=== PATIENT | female | born 1990 | race American Indian/Alaskan Native ===

== ENCOUNTER 2019-05-03 04:25 | Emergency (ER) | payer SELFPAY ==
[2019-05-03 04:54] LABS: Bilirubin,Urine NEG (Negative); Blood,Urine NEG (Negative); Color,Urine Yellow (Yellow); Protein,Urine <15 mg/dL mg/dL (Negative); Urobilinogen,Urine < 2.0 mg/dL (<2.0)
[2019-05-03] MEDS ORDERED: LIDOCAINE VISCOUS 2% 15 ML ORAL LIQD PO ONE (05:14)
[2019-05-03] MEDS ORDERED: FAMOTIDINE 20 MG/2 ML INJ IV ONE (05:14)
[2019-05-03] MEDS ORDERED: ALUM-MAG HYDROXIDE-SIMETHICONE 200-200-20MG/5ML ORAL LIQD 30 ML PO ONE (05:14)
[2019-05-03] MEDS ORDERED: ONDANSETRON 4 MG/2 ML INJ IV ONE (05:14)
[2019-05-03] MEDS ORDERED: DICYCLOMINE 20 MG TAB PO ONE (05:14)
[2019-05-03 05:24] LABS: Basophils % (Auto) 0.5 % (0.0-1.8); Eosinophils % (Auto) 0.6 % (0.0-4.3); Hematocrit 39.4 % (30.3-42.9); Hemoglobin 13.3 gm/dl (10.1-14.3); Lymphocytes # (Auto) 2.1 K/mm3 (1.2-5.4); Lymphocytes % (Auto) 32.5 % (13.4-35.0); Mean Corpuscular HGB Conc 34 % (30-34); Mean Corpuscular Volume 93 fl (79-97); Monocytes # (Auto) 0.6 K/mm3 (0.0-0.8); Monocytes % (Auto) 9.9 % (0.0-7.3); Platelet Count 313 K/mm3 (140-440); Red Blood Count 4.26 M/mm3 (3.65-5.03); Red Cell Distribution Width 13.5 % (13.2-15.2)
[2019-05-03 05:39] LABS: Alanine Aminotransferase 11 units/L (7-56); Albumin 3.9 g/dL (3.9-5); BUN/Creatinine Ratio 21; Blood Urea Nitrogen 15 mg/dL (7-17); Calcium 9.2 mg/dL (8.4-10.2); Hemolysis Index 8
--- NOTE | 2019-05-03 06:40 | Ultrasound Report ---
ULTRASOUND ABDOMEN, LIMITED (RIGHT UPPER QUADRANT) INDICATION: Epigastric / RUQ pain. COMPARISON: None available. FINDINGS: Pancreas: Visualized portion shows no significant abnormality. Liver: Normal. Gallbladder: 1 or 2 gallstones are present. No wall thickening or pericholecystic fluid. Bile ducts: Normal. Common Bile Duct measures 2 mm. Free fluid: None. Additional Findings: None. IMPRESSION: 1. Cholelithiasis without evidence of acute cholecystitis. Signer Name: Sharath Mallory MD Signed: 05/03/2019 6:36 AM Workstation Name: [id number]
--- NOTE | 2019-05-03 07:54 | Emergency Department Report ---
ED Abdominal Pain HPI - General Chief Complaint: Abdominal Pain Stated Complaint: UPPER ABD PAIN/NAUSEA/TIERNEY Time Seen by Provider: 05/03/19 07:17 Source: patient Mode of arrival: Ambulatory Limitations: No Limitations - History of Present Illness Initial Comments: This is a 29-year-old female nontoxic, well nourished in appearance, no acute signs of distress presents to the ED with c/o of nausea and abdominal pain 4 days. Patient denies any vomiting. Patient describes abdominal pain as cramping and aching with level of 3/10 in the epigastric area with radiation to right flank area. Patient denies chest pain, short of breath, fever, chills, headache, stiff neck, numbness or tingling. Patient denies any diarrhea or constipation. Patient denies any recent travels. Patient denies any allergies or significant past medical history area MD Complaint: abdominal pain -: days(s) (4) Location: RUQ, epigastric Radiation: R flank Migration to: no migration Severity: mild Severity scale (0 -10): 3 Quality: cramping Consistency: constant Improves With: nothing Worsens With: nothing Associated Symptoms: nausea. denies: vomiting, diarrhea, fever, chills, constipation, dysuria, hematemesis, hematochezia, melena, hematuria, anorexia, syncope - Related Data Previous Rx's Medication Instructions Recorded Last Taken Type Acetaminophen/Codeine [Tylenol 1 tab PO Q6H PRN #12 tab 05/03/19 Unknown Rx /Codeine # 3 tab] Ondansetron [Zofran Odt] 4 mg PO Q8HR PRN #20 tab.rapdis 05/03/19 Unknown Rx Allergies Allergy/AdvReac Type Severity Reaction Status Date / Time No Known Allergies Allergy Unverified 05/03/19 04:33 ED Review of Systems ROS: Stated complaint: UPPER ABD PAIN/NAUSEA/TIERNEY Other details as noted in HPI Constitutional: denies: chills, fever Eyes: denies: eye pain, eye discharge, vision change ENT: denies: ear pain, throat pain Respiratory: denies: cough, shortness of breath, wheezing Cardiovascular: denies: chest pain, palpitations Endocrine: no symptoms reported Gastrointestinal: abdominal pain, nausea. denies: vomiting, diarrhea, constipation Genitourinary: denies: urgency, dysuria, discharge Musculoskeletal: denies: back pain, joint swelling, arthralgia Skin: denies: rash, lesions Neurological: denies: headache, weakness, paresthesias Psychiatric: denies: anxiety, depression Hematological/Lymphatic: denies: easy bleeding, easy bruising ED Past Medical Hx - Past Medical History Previous Medical History?: Yes Hx Asthma: Yes (allergies induced) - Surgical History Past Surgical History?: No - Social History Smoking Status: Never Smoker Substance Use Type: None - Medications Home Medications: Home Medications Medication Instructions Recorded Confirmed Last Taken Type Acetaminophen/Codeine [Tylenol 1 tab PO Q6H PRN #12 tab 05/03/19 Unknown Rx /Codeine # 3 tab] Ondansetron [Zofran Odt] 4 mg PO Q8HR PRN #20 tab.rapdis 05/03/19 Unknown Rx ED Physical Exam - General Limitations: No Limitations General appearance: alert, in no apparent distress - Head Head exam: Present: atraumatic, normocephalic - Neck Neck exam: Present: normal inspection, full ROM. Absent: tenderness, meningismus, lymphadenopathy - Respiratory Respiratory exam: Present: normal lung sounds bilaterally. Absent: respiratory distress, wheezes, rales, rhonchi, stridor, chest wall tenderness, accessory muscle use, decreased breath sounds, prolonged expiratory - Cardiovascular Cardiovascular Exam: Present: regular rate, normal rhythm, normal heart sounds. Absent: bradycardia, tachycardia, irregular rhythm, systolic murmur, diastolic murmur, rubs, gallop - GI/Abdominal GI/Abdominal exam: Present: soft, tenderness (RUQ with epigastric), normal bowel sounds. Absent: distended, guarding, rebound, rigid, diminished bowel sounds - Extremities Exam Extremities exam: Present: full ROM - Back Exam Back exam: Present: normal inspection, full ROM. Absent: tenderness, CVA tenderness (R), CVA tenderness (L), muscle spasm, paraspinal tenderness, vertebral tenderness, rash noted - Neurological Exam Neurological exam: Present: alert, oriented X3, normal gait - Psychiatric Psychiatric exam: Present: normal affect, normal mood - Skin Skin exam: Present: warm, dry, intact, normal color. Absent: rash ED Course Vital Signs 05/03/19 04:30 Temperature 98.7 F Pulse Rate 86 Respiratory 18 Rate Blood Pressure 113/79 O2 Sat by Pulse 99 Oximetry - Reevaluation(s) Reevaluation #1: 05/03/19 08:02 Patient is speaking in full sentences with no signs of distress noted. ED Medical Decision Making - Lab Data Result diagrams: 05/03/19 04:51 05/03/19 04:51 - Medical Decision Making This is a 29-year-old female that presents with cholelithiasis without cholecystitis. Patient is stable and was examined by me. Negative signs of symptoms of appendicitis. Labs obtained. UA obtained. US of abdomen obtained and dictated by the radiologist. Patient is notified of the report with no questions noted by the patient. Vital signs are stable prior to discharge. Patient received medical treatment in the ED which patient stated symptoms has resovled and subsided. Was instructed note to operate any machinery due to possible drowsiness and stated someone will drive the patient home. A by mouth challenge has been obtained and patient tolerated well with no nausea vomiting. Patient was also instructed to Follow-up with a primary care doctor in 3-5 days or if symptoms worsen and continue return to emergency room as soon as possible. At time of discharge, the patient does not seem toxic or ill in appearance. No acute signs of distress noted. Patient agrees to discharge treatment plan of care. No further questions noted by the patient. Critical care attestation.: If time is entered above; I have spent that time in minutes in the direct care of this critically ill patient, excluding procedure time. ED Disposition Clinical Impression: Cholelithiasis Qualifiers: Cholelithiasis location: gallbladder Cholecystitis presence: without cholecystitis Biliary obstruction: without biliary obstruction Qualified Code(s): K80.20 - Calculus of gallbladder without cholecystitis without obstruction Disposition: DC-01 TO HOME OR SELFCARE Is pt being admited?: No Does the pt Need Aspirin: No Condition: Stable Instructions: Cholelithiasis (ED), Acetaminophen/Codeine (By mouth) Additional Instructions: Follow-up with a primary care and eligibility specialist doctor in 3-5 days or if symptoms worsen and continue return to emergency room as soon as possible. Prescriptions: Acetaminophen/Codeine [Tylenol /Codeine # 3 tab] 1 tab PO Q6H PRN #12 tab PRN Reason: Pain , Severe (7-10) Ondansetron [Zofran Odt] 4 mg PO Q8HR PRN #20 tab.rapdis PRN Reason: Nausea Referrals: PRIMARY CARE, [Referring] - 3-5 Days JAYLEEN VAZ MD [Staff Physician] - 3-5 Days [facility] [Provider Group] - 3-5 Days [facility] [Outside] - 3-5 Days Forms: Work/School Release Form(ED)
[2019-05-03 08:17] VITALS: BP 119/69
== END 2019-05-03 08:16 | disposition home or self-care (01) ==
LOC: ED 04:25
DX: K80.20 Calculus of gallbladder without cholecystitis without obstruction (principal); J45.909 Unspecified asthma, uncomplicated
CPT/HCPCS: 36415; 76705; 80053; 81001; 83690; 84703; 85025; 96374; 96375; 99284; J2405

== ENCOUNTER 2019-05-06 01:00 | Emergency (ER) | payer SELFPAY ==
[2019-05-06 02:09] LABS: Basophils % (Auto) 0.3 % (0.0-1.8); Eosinophils % (Auto) 0.3 % (0.0-4.3); Hemoglobin 13.7 gm/dl (10.1-14.3); Lymphocytes # (Auto) 1.7 K/mm3 (1.2-5.4); Lymphocytes % (Auto) 20.2 % (13.4-35.0); Mean Corpuscular HGB Conc 33 % (30-34); Mean Corpuscular Volume 93 fl (79-97); Monocytes # (Auto) 0.8 K/mm3 (0.0-0.8); Platelet Count 331 K/mm3 (140-440); Red Blood Count 4.43 M/mm3 (3.65-5.03); Red Cell Distribution Width 13.4 % (13.2-15.2)
[2019-05-06 02:53] LABS: Alanine Aminotransferase 9 units/L (7-56); Albumin 4.1 g/dL (3.9-5); BUN/Creatinine Ratio 21; Blood Urea Nitrogen 15 mg/dL (7-17); Calcium 9.4 mg/dL (8.4-10.2); Hemolysis Index 0
[2019-05-06] MEDS ORDERED: ONDANSETRON 4 MG/2 ML INJ IV ONE (06:18)
[2019-05-06] MEDS ORDERED: DICYCLOMINE 20 MG/2 ML INJ IM ONE (06:18)
[2019-05-06] MEDS ORDERED: fentaNYL 100 MCG/2 ML INJ IV ONE (06:18)
--- NOTE | 2019-05-06 06:25 | Emergency Department Report ---
HPI - General Chief Complaint: Abdominal Pain Time Seen by Provider: 05/06/19 06:10 - HPI HPI: Room 3 The patient is a 29-year-old female presenting with chief complaint of abdominal pain. The patient states she has had midepigastric and right upper quadrant abdominal pain for the past 7 days. The patient states she came to this emergency department 2 days ago had ultrasound performed which revealed cholelithiasis. Patient was given prescription for Tylenol 3 and Zofran but states it has not helped. The patient states she continues to have nausea vomiting and midepigastric right upper quadrant abdominal pain which she describes as aching and sharp in nature. Patient denies diarrhea or fever. Patient currently gives her pain a score of 10/10 Location: [See above] Duration: [See above] Quality: [See above] Severity: [See above] Timing: [See above] Context: [See above] Modifying factors: [See above] Associated signs and symptoms: [see above] ED Past Medical Hx - Past Medical History Previous Medical History?: Yes Hx Asthma: Yes (allergies induced) - Surgical History Past Surgical History?: No - Family History Family history: no significant - Social History Smoking Status: Never Smoker Substance Use Type: None (denies illicit drug use) - Medications Home Medications: Home Medications Medication Instructions Recorded Confirmed Last Taken Type Acetaminophen/Codeine [Tylenol 1 tab PO Q6H PRN #12 tab 05/03/19 Unknown Rx /Codeine # 3 tab] Ondansetron [Zofran Odt] 4 mg PO Q8HR PRN #20 tab.rapdis 05/03/19 Unknown Rx Dicyclomine [Bentyl] 20 mg PO QID #30 tablet 05/06/19 Unknown Rx HYDROcodone/APAP 5-325 [Waldo 1 - 2 each PO Q6HR PRN #14 tablet 05/06/19 Unknown Rx 5/325] Promethazine [Phenergan] 25 mg PO Q6HR PRN #20 tab 05/06/19 Unknown Rx Promethazine [Phenergan] 25 mg CA Q6HR PRN #5 supp.rect 05/06/19 Unknown Rx ED Review of Systems ROS: Stated complaint: GALLSTONE COMPLICATIONS Other details as noted in HPI Constitutional: denies: fever Eyes: denies: eye pain ENT: denies: throat pain Respiratory: no symptoms reported Cardiovascular: denies: chest pain Endocrine: no symptoms reported Gastrointestinal: abdominal pain, nausea, vomiting, constipation. denies: diarrhea Genitourinary: denies: dysuria Musculoskeletal: back pain Neurological: headache Physical Exam - Physical Exam Vital Signs: Vital Signs 05/06/19 05/06/19 01:20 05:09 Temperature 97.9 F 98.1 F Pulse Rate 79 85 Respiratory 20 15 Rate Blood Pressure 126/72 Blood Pressure 111/70 [Left] O2 Sat by Pulse 99 98 Oximetry Physical Exam: GENERAL: The patient is well-developed well-nourished female lying on stretcher appearing to be in mild discomfort. [] HEENT: Normocephalic. Atraumatic. Extraocular motions are intact. Patient has moist mucous membranes. NECK: Supple. Trachea midline CHEST/LUNGS: Clear to auscultation. There is no respiratory distress noted. HEART/CARDIOVASCULAR: Regular. There is no tachycardia. There is no gallop rub or murmur. ABDOMEN: Abdomen is soft, with mild discomfort to palpation in the midepigastric and right upper quadrant. Patient has normal bowel sounds. There is no abdominal distention. SKIN: There is no rash. There is no edema. There is no diaphoresis. NEURO: The patient is awake, alert, and oriented. The patient is cooperative. The patient has normal speech MUSCULOSKELETAL:There is no evidence of acute injury. ED Course Vital Signs 05/06/19 05/06/19 01:20 05:09 Temperature 97.9 F 98.1 F Pulse Rate 79 85 Respiratory 20 15 Rate Blood Pressure 126/72 Blood Pressure 111/70 [Left] O2 Sat by Pulse 99 98 Oximetry - Reevaluation(s) Reevaluation #1: 05/06/19 07:17 Patient improved ED Medical Decision Making - Lab Data Result diagrams: 05/06/19 01:44 05/06/19 01:44 Laboratory Tests 05/06/19 05/06/19 05/06/19 01:44 01:44 01:44 WBC 8.3 RBC 4.43 Hgb 13.7 Hct 41.0 MCV 93 MCH 31 MCHC 33 RDW 13.4 Plt Count 331 Lymph % (Auto) 20.2 [place] % (Auto) 9.0 H Eos % (Auto) 0.3 Baso % (Auto) 0.3 Lymph # 1.7 [place] # 0.8 Eos # 0.0 Baso # 0.0 Seg Neutrophils % 70.2 H Seg Neutrophils # 5.9 Sodium 137 Potassium 4.1 Chloride 102.0 Carbon Dioxide 24 Anion Gap 15 BUN 15 Creatinine 0.7 Estimated GFR > 60 BUN/Creatinine Ratio 21 Glucose 102 H Calcium 9.4 Total Bilirubin < 0.20 AST 12 ALT 9 Alkaline Phosphatase 45 Total Protein 7.7 Albumin 4.1 Albumin/Globulin Ratio 1.1 Lipase 23 HCG, Qual Negative Urine Color Urine Turbidity Urine pH Ur Specific [place] Urine Protein Urine Glucose (UA) Urine Ketones Urine Blood Urine Nitrite Urine Bilirubin Urine Urobilinogen Ur Leukocyte Esterase Urine WBC (Auto) Urine RBC (Auto) U Epithel Cells (Auto) Urine Bacteria (Auto) Urine Mucus 05/06/19 06:28 WBC RBC Hgb Hct MCV MCH MCHC RDW Plt Count Lymph % (Auto) [place] % (Auto) Eos % (Auto) Baso % (Auto) Lymph # [place] # Eos # Baso # Seg Neutrophils % Seg Neutrophils # Sodium Potassium Chloride Carbon Dioxide Anion Gap BUN Creatinine Estimated GFR BUN/Creatinine Ratio Glucose Calcium Total Bilirubin AST ALT Alkaline Phosphatase Total Protein Albumin Albumin/Globulin Ratio Lipase HCG, Qual Urine Color Straw Urine Turbidity Clear Urine pH 6.0 Ur Specific [place] 1.013 Urine Protein <15 mg/dl Urine Glucose (UA) Neg Urine Ketones 20 Urine Blood Neg Urine Nitrite Neg Urine Bilirubin Neg Urine Urobilinogen < 2.0 Ur Leukocyte Esterase Neg Urine WBC (Auto) 2.0 Urine RBC (Auto) 2.0 U Epithel Cells (Auto) 3.0 Urine Bacteria (Auto) 1+ Urine Mucus Few - Radiology Data Radiology results: report reviewed (right upper quadrant ultrasound), image reviewed (right upper quadrant ultrasound) [facility] [address] [place] [address] Ultrasound Report Signed Patient: LINDY JOHNSON MR#: [id number] : 1990 Acct:[id number] Age/Sex: 29 / F ADM Date: 05/06/19 Loc: ED Attending Dr: Ordering Physician: LOUISA WRIGHT MD Date of Service: 05/06/19 Procedure(s): US abdomen limited Accession Number(s): [id number] cc: LOUISA WRIGHT MD LIMITED RUQ ABDOMINAL ULTRASOUND INDICATION: RUQ pain. COMPARISON: Ultrasound from 05/03/2019. FINDINGS: Pancreas: Visualized portions show no significant abnormality. Abdominal Aorta: No significant abnormality. IVC: No significant abnormality. Liver: The liver measures 15.5 cm in length. No significant abnormality. Normal hepatopedal blood flow in the main portal vein. Gallbladder: Appears to be mostly contracted with gallbladder wall thickening measuring 1 cm. There was no reported sonographic Dinh sign during appears to be some sludge but no gross cholelithiasis on this exam. Bile ducts: No significant abnormality. Common bile duct measures 3 mm. Right kidney: No significant abnormality visualized.. Free fluid: None. Additional Findings: None. IMPRESSION: 1. Contracted appearance of the gallbladder with associated mild wall thickening. There is some internal biliary sludge but no gross stone disease seen on the current exam and there was no reported sonographic Dinh sign. Signer Name: Humble Hammer MD Signed: 05/06/2019 7:07 AM Workstation Name: [id number] Transcribed By: CESAR Dictated By: Humble Hammer MD Electronically Authenticated By: Humble Hammer MD Signed Date/Time: 05/06/19706 DD/ 4 TD/TT: - Differential Diagnosis symptomatic cholelithiasis, cholecystitis, peptic ulcer disease, biliary pa Critical care attestation.: If time is entered above; I have spent that time in minutes in the direct care of this critically ill patient, excluding procedure time. ED Disposition Clinical Impression: Symptomatic cholelithiasis, Acute abdominal pain, Nausea & vomiting Disposition: -01 TO HOME OR SELFCARE Is pt being admited?: No Does the pt Need Aspirin: No Condition: Stable Instructions: Cholecystitis (ED), Biliary Colic (ED), Abdominal Pain (ED) Additional Instructions: Return to the emergency department should you develop worsening symptoms, inability to tolerate food or liquids, high fever or any other concerns Prescriptions: Dicyclomine [Bentyl] 20 mg PO QID #30 tablet HYDROcodone/APAP 5-325 [Waldo 5/325] 1 - 2 each PO Q6HR PRN #14 tablet PRN Reason: Pain Promethazine [Phenergan] 25 mg PO Q6HR PRN #20 tab PRN Reason: Nausea Promethazine [Phenergan] 25 mg CA Q6HR PRN #5 supp.rect PRN Reason: Vomiting Referrals: LUIS SANCHEZ DO [Staff Physician] - LAURIE (Dr Sanchez is a general surgeon. Please follow-up with her for further evaluation) Time of Disposition: 07:17
[2019-05-06 06:52] LABS: Bacteria,Urine 1+ /HPF (Negative); Bilirubin,Urine NEG (Negative); Blood,Urine NEG (Negative); Color,Urine Straw (Yellow); Mucus,Urine FEW /HPF; Protein,Urine <15 mg/dL mg/dL (Negative); Urobilinogen,Urine < 2.0 mg/dL (<2.0)
--- NOTE | 2019-05-06 07:11 | Ultrasound Report ---
LIMITED RUQ ABDOMINAL ULTRASOUND INDICATION: RUQ pain. COMPARISON: Ultrasound from 05/03/2019. FINDINGS: Pancreas: Visualized portions show no significant abnormality. Abdominal Aorta: No significant abnormality. IVC: No significant abnormality. Liver: The liver measures 15.5 cm in length. No significant abnormality. Normal hepatopedal blood fl ow in the main portal vein. Gallbladder: Appears to be mostly contracted with gallbladder wall thickening measuring 1 cm. There w as no reported sonographic Dinh sign during appears to be some sludge but no gross cholelithiasis o n this exam. Bile ducts: No significant abnormality. Common bile duct measures 3 mm. Right kidney: No significant abnormality visualized.. Free fluid: None. Additional Findings: None. IMPRESSION: 1. Contracted appearance of the gallbladder with associated mild wall thickening. There is some inter nal biliary sludge but no gross stone disease seen on the current exam and there was no reported sono graphic Dinh sign. Signer Name: Humble Hammer MD Signed: 05/06/2019 7:07 AM Workstation Name: [id number]
[2019-05-06 07:19] VITALS: BP 104/67
== END 2019-05-06 07:46 | disposition home or self-care (01) ==
LOC: ED 01:00
DX: K80.20 Calculus of gallbladder without cholecystitis without obstruction (principal); J45.909 Unspecified asthma, uncomplicated
CPT/HCPCS: 36415; 76705; 80053; 81001; 83690; 84703; 85025; 96372; 96374; 96375; 99284; J0500; J2405; J3010

== ENCOUNTER 2020-05-19 21:24 | Emergency (ER) | payer SELFPAY ==
[2020-05-19] MEDS ORDERED: FAMOTIDINE 20 MG/2 ML INJ IV ONE (21:39)
[2020-05-19] MEDS ORDERED: ONDANSETRON 4 MG/2 ML INJ IV ONE (21:39)
[2020-05-19] MEDS ORDERED: THIAMINE 100 MG, FOLIC ACID 1 MG, MULTIPLE VITAMIN INJ, ADULT 10 ML in SODIUM CHLORIDE ... IV ONE (21:39)
[2020-05-19 22:19] LABS: Basophils % (Auto) 0.4 % (0.0-1.8); Hematocrit 38.5 % (30.3-42.9); Hemoglobin 12.9 gm/dl (10.1-14.3); Lymphocytes # (Auto) 1.9 K/mm3 (1.2-5.4); Lymphocytes % (Auto) 23.8 % (13.4-35.0); Mean Corpuscular HGB Conc 33 % (30-34); Mean Corpuscular Volume 94 fl (79-97); Monocytes # (Auto) 0.6 K/mm3 (0.0-0.8); Monocytes % (Auto) 7.7 % (0.0-7.3); Platelet Count 384 K/mm3 (140-440); Red Blood Count 4.12 M/mm3 (3.65-5.03); Red Cell Distribution Width 14.2 % (13.2-15.2)
[2020-05-19 22:35] LABS: Alanine Aminotransferase 13 units/L (7-56); Albumin 3.9 g/dL (3.9-5); Blood Urea Nitrogen 10 mg/dL (7-17); Calcium 8.4 mg/dL (8.4-10.2); Hemolysis Index 5
[2020-05-19 22:46] LABS: BUN/Creatinine Ratio 17
[2020-05-19 23:53] VITALS: BP 102/67
[2020-05-20] MEDS ORDERED: SODIUM CHLORIDE 0.9% 1000 ML 1,000 ML IV ONE (00:21)
--- NOTE | 2020-05-20 00:26 | Emergency Department Report ---
<LIZ BLANCO - Last Filed: 05/20/20 01:34> ED General Adult HPI - General Chief complaint: GI Bleed Stated complaint: ALCOHOL INTOXICATION Time Seen by Provider: 05/20/20 00:08 Source: patient Mode of arrival: Wheelchair Limitations: No Limitations - History of Present Illness Initial comments: Patient is a 30-year-old female with no pertinent past medical history who presents to emergency room for evaluation of multiple symptoms. Patient states that in celebration of the newly started , she had a combination of several alcoholic beverages. 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 Patient states that since then she has had burning abdominal pain and has vomited dark bloodx1. Patient states she has been unable to tolerate any food or drink by mouth. She has also had associated diarrhea which is nonbloody. She denies fevers, chills. - Related Data Previous Rx's Medication Instructions Recorded Last Taken Type Acetaminophen/Codeine [Tylenol 1 tab PO Q6H PRN #12 tab 05/03/19 Unknown Rx /Codeine # 3 tab] Dicyclomine [Bentyl] 20 mg PO QID #30 tablet 05/06/19 Unknown Rx HYDROcodone/APAP 5-325 [Prim 1 - 2 each PO Q6HR PRN #14 tablet 05/06/19 Unknown Rx 5/325] Promethazine [Phenergan] 25 mg PO Q6HR PRN #20 tab 05/06/19 Unknown Rx Mag Hydrox/Aluminum Hyd/Simeth 20 ml PO QID PRN #1 bottle 05/20/20 Unknown Rx [Maalox Advanced Suspension] Ondansetron [Zofran Odt] 4 mg PO Q8HR PRN #20 tab.rapdis 05/20/20 Unknown Rx Pantoprazole [Protonix] 40 mg PO QDAY #20 tablet 05/20/20 Unknown Rx Promethazine [Phenergan SUPPOS] 25 mg WI Q6HR PRN #20 supp.rect 05/20/20 Unknown Rx traMADoL [Ultram 50 MG tab] 50 mg PO Q6HR PRN #20 tablet 05/20/20 Unknown Rx Allergies Allergy/AdvReac Type Severity Reaction Status Date / Time No Known Allergies Allergy Verified 05/19/20 21:50 ED Review of Systems Constitutional: denies: chills, fever Eyes: denies: eye pain, eye discharge, vision change ENT: denies: ear pain, throat pain Respiratory: denies: cough, shortness of breath, wheezing Cardiovascular: denies: chest pain, palpitations Endocrine: no symptoms reported Gastrointestinal: abdominal pain, nausea, diarrhea, hematemesis. denies: melena, hematochezia Genitourinary: denies: urgency, dysuria, discharge Musculoskeletal: denies: back pain, joint swelling, arthralgia Skin: denies: rash, lesions Neurological: denies: headache, weakness, paresthesias Psychiatric: denies: anxiety, depression Hematological/Lymphatic: denies: easy bleeding, easy bruising ED Past Medical Hx - Past Medical History Hx Asthma: Yes (allergies induced) - Surgical History Past Surgical History?: No - Social History Smoking Status: Current Every Day Smoker Substance Use Type: Alcohol - Medications Home Medications: Home Medications Medication Instructions Recorded Confirmed Last Taken Type Acetaminophen/Codeine [Tylenol 1 tab PO Q6H PRN #12 tab 05/03/19 Unknown Rx /Codeine # 3 tab] Dicyclomine [Bentyl] 20 mg PO QID #30 tablet 05/06/19 Unknown Rx HYDROcodone/APAP 5-325 [Prim 1 - 2 each PO Q6HR PRN #14 tablet 05/06/19 Unknown Rx 5/325] Promethazine [Phenergan] 25 mg PO Q6HR PRN #20 tab 05/06/19 Unknown Rx Mag Hydrox/Aluminum Hyd/Simeth 20 ml PO QID PRN #1 bottle 05/20/20 Unknown Rx [Maalox Advanced Suspension] Ondansetron [Zofran Odt] 4 mg PO Q8HR PRN #20 tab.rapdis 05/20/20 Unknown Rx Pantoprazole [Protonix] 40 mg PO QDAY #20 tablet 05/20/20 Unknown Rx Promethazine [Phenergan SUPPOS] 25 mg WI Q6HR PRN #20 supp.rect 05/20/20 Unknown Rx traMADoL [Ultram 50 MG tab] 50 mg PO Q6HR PRN #20 tablet 05/20/20 Unknown Rx ED Physical Exam - General Limitations: No Limitations General appearance: alert, in no apparent distress - Head Head exam: Present: atraumatic, normocephalic - Eye Eye exam: Present: normal appearance - ENT ENT exam: Present: mucous membranes moist - Neck Neck exam: Present: normal inspection - Respiratory Respiratory exam: Present: normal lung sounds bilaterally. Absent: respiratory distress - Cardiovascular Cardiovascular Exam: Present: regular rate, normal rhythm. Absent: systolic murmur, diastolic murmur, rubs, gallop - GI/Abdominal GI/Abdominal exam: Present: soft, normal bowel sounds. Absent: distended, tenderness, guarding, rebound, rigid - Extremities Exam Extremities exam: Present: normal inspection - Back Exam Back exam: Present: normal inspection - Neurological Exam Neurological exam: Present: alert, oriented X3 - Psychiatric Psychiatric exam: Present: normal affect, normal mood - Skin Skin exam: Present: warm, dry, intact, normal color. Absent: rash ED Course - Reevaluation(s) Reevaluation #1: 05/20/20 01:09 labs unremarkable. cxr devoid of any abnormalities. Urine pending and patient has not received any medications. ED Medical Decision Making - Lab Data Result diagrams: 05/19/20 22:00 05/19/20 22:00 - Radiology Data Radiology results: image reviewed - Medical Decision Making 30-year-old female presenting to the emergency room for evaluation of multiple symptoms including abdominal pain vomiting decreased appetite and inability to tolerate p.o. Her vital signs are stable on ED arrival. Physical exam grossly unremarkable. I gave consideration to alcoholic gastritis, alcohol poisoning, Boerhaave's, isabel emerson tear, upper versus lower GI bleed. Basic labs and imaging were ordered to evaluate further. Dispo pending ED work-up. Symptomatic care provided in the emergency room. ED Disposition Clinical Impression: Abdominal pain, Alcoholic gastritis, Isabel-Emerson tear Disposition: DC- TO HOME OR SELFCARE Is pt being admited?: No Does the pt Need Aspirin: No Condition: Stable Instructions: Alcohol Use Disorder, Gastritis, Adult, Isabel-Emerson Syndrome Additional Instructions: Take the medication as prescribed. Follow-up with your doctor or doctor/clinic provided. Return if symptoms worsen as indicated by your discharge instructions. Prescriptions: Mag Hydrox/Aluminum Hyd/Simeth [Maalox Advanced Suspension] 20 ml PO QID PRN #1 bottle PRN Reason: Indigestion Promethazine [Phenergan SUPPOS] 25 mg WI Q6HR PRN #20 supp.rect PRN Reason: Vomiting Pantoprazole [Protonix] 40 mg PO QDAY #20 tablet traMADoL [Ultram 50 MG tab] 50 mg PO Q6HR PRN #20 tablet PRN Reason: Pain Ondansetron [Zofran Odt] 4 mg PO Q8HR PRN #20 tab.rapdis PRN Reason: Nausea And Vomiting Referrals: PRIMARY CARE, [Primary Care Provider] - 3-5 Days BEKA SOW MD [Staff Physician] - 3-5 Days (GI specialist ) [facility] [Provider Group] - 3-5 Days (primary care doctor ) Forms: Accompanied Note <BEKAH ONTIVEROS - Last Filed: 05/20/20 05:16> ED Review of Systems ROS: Stated complaint: ALCOHOL INTOXICATION Other details as noted in HPI ED Course Vital Signs 05/19/20 21:35 Temperature 98.4 F Pulse Rate 98 H Respiratory 18 Rate Blood Pressure 102/67 O2 Sat by Pulse 95 Oximetry - Reevaluation(s) Reevaluation #1: 05/20/20 03:38 Patient reassessed. Continues to complain of nausea and epigastric pain however, no further episodes of vomiting. Urine collected however, grossly bloody at the bedside and patient admits to being on her menstrual cycle there fore UA results are inaccurate. She denies urinary tract infection. Additional Zofran, viscous lidocaine, Maalox, and IV morphine ordered to help with residual nausea and pain ED Medical Decision Making - Lab Data Result diagrams: 05/19/20 22:00 05/19/20 22:00 Lab Results 05/19/20 05/19/20 05/19/20 Range/Units 22:00 22:00 22:00 WBC 7.9 (4.5-11.0) K/mm3 RBC 4.12 (3.65-5.03) M/mm3 Hgb 12.9 (10.1-14.3) gm/dl Hct 38.5 (30.3-42.9) % MCV 94 (79-97) fl MCH 31 (28-32) pg MCHC 33 (30-34) % RDW 14.2 (13.2-15.2) % Plt Count 384 (140-440) K/mm3 Lymph % (Auto) 23.8 (13.4-35.0) % Mcdonald % (Auto) 7.7 H (0.0-7.3) % Eos % (Auto) 0.0 (0.0-4.3) % Baso % (Auto) 0.4 (0.0-1.8) % Lymph # (Auto) 1.9 (1.2-5.4) K/mm3 Mcdonald # (Auto) 0.6 (0.0-0.8) K/mm3 Eos # (Auto) 0.0 (0.0-0.4) K/mm3 Baso # (Auto) 0.0 (0.0-0.1) K/mm3 Seg Neutrophils % 68.1 (40.0-70.0) % Seg Neutrophils # 5.4 (1.8-7.7) K/mm3 Sodium 141 (137-145) mmol/L Potassium 3.7 (3.6-5.0) mmol/L Chloride 104.2 (98-107) mmol/L Carbon Dioxide 23 (22-30) mmol/L Anion Gap 18 mmol/L BUN 10 (7-17) mg/dL Creatinine 0.6 (0.6-1.2) mg/dL Estimated GFR > 60 ml/min BUN/Creatinine Ratio 17 % Glucose 97 (65-100) mg/dL Calcium 8.4 (8.4-10.2) mg/dL Total Bilirubin 0.20 (0.1-1.2) mg/dL AST 18 (5-40) units/L ALT 13 (7-56) units/L Alkaline Phosphatase 46 (35-129) units/L Total Protein 7.2 (6.3-8.2) g/dL Albumin 3.9 (3.9-5) g/dL Albumin/Globulin Ratio 1.2 % HCG, Qual Negative (Negative) Urine Color (Yellow) Urine Turbidity (Clear) Urine pH (5.0-7.0) Ur Specific [place] (1.003-1.030) Urine Protein (Negative) mg/dL Urine Glucose (UA) (Negative) mg/dL Urine Ketones (Negative) mg/dL Urine Blood (Negative) Urine Nitrite (Negative) Urine Bilirubin (Negative) Urine Urobilinogen (<2.0) mg/dL Ur Leukocyte Esterase (Negative) Urine WBC (Auto) (0.0-6.0) /HPF Urine RBC (Auto) (0.0-6.0) /HPF U Epithel Cells (Auto) (0-13.0) /HPF Urine Bacteria (Auto) (Negative) /HPF 05/20/20 Range/Units 02:11 WBC (4.5-11.0) K/mm3 RBC (3.65-5.03) M/mm3 Hgb (10.1-14.3) gm/dl Hct (30.3-42.9) % MCV (79-97) fl MCH (28-32) pg MCHC (30-34) % RDW (13.2-15.2) % Plt Count (140-440) K/mm3 Lymph % (Auto) (13.4-35.0) % Mcdonald % (Auto) (0.0-7.3) % Eos % (Auto) (0.0-4.3) % Baso % (Auto) (0.0-1.8) % Lymph # (Auto) (1.2-5.4) K/mm3 Mcdonald # (Auto) (0.0-0.8) K/mm3 Eos # (Auto) (0.0-0.4) K/mm3 Baso # (Auto) (0.0-0.1) K/mm3 Seg Neutrophils % (40.0-70.0) % Seg Neutrophils # (1.8-7.7) K/mm3 Sodium (137-145) mmol/L Potassium (3.6-5.0) mmol/L Chloride (98-107) mmol/L Carbon Dioxide (22-30) mmol/L Anion Gap mmol/L BUN (7-17) mg/dL Creatinine (0.6-1.2) mg/dL Estimated GFR ml/min BUN/Creatinine Ratio % Glucose (65-100) mg/dL Calcium (8.4-10.2) mg/dL Total Bilirubin (0.1-1.2) mg/dL AST (5-40) units/L ALT (7-56) units/L Alkaline Phosphatase (35-129) units/L Total Protein (6.3-8.2) g/dL Albumin (3.9-5) g/dL Albumin/Globulin Ratio % HCG, Qual (Negative) Urine Color Micki (Yellow) Urine Turbidity Cloudy (Clear) Urine pH 6.0 (5.0-7.0) Ur Specific [place] 1.030 (1.003-1.030) Urine Protein >500 (Negative) mg/dL Urine Glucose (UA) Neg (Negative) mg/dL Urine Ketones 20 (Negative) mg/dL Urine Blood Lg (Negative) Urine Nitrite Neg (Negative) Urine Bilirubin Neg (Negative) Urine Urobilinogen < 2.0 (<2.0) mg/dL Ur Leukocyte Esterase Neg (Negative) Urine WBC (Auto) 41.0 H (0.0-6.0) /HPF Urine RBC (Auto) > 182.0 (0.0-6.0) /HPF U Epithel Cells (Auto) 4.0 (0-13.0) /HPF Urine Bacteria (Auto) 1+ (Negative) /HPF - Medical Decision Making Patient signed out to me by initial treating provider. Patient states after drinking heavily she had multiple episodes of bilious vomiting with p.o. intolerance followed by blood-streaked vomiting. She denies gross hematemesis. Positive associated burning epigastric and esophageal pain. During ED stay patient received IV fluids and vitamin B as well as multiple doses of Zofran, Maalox, viscous lidocaine, IV Pepcid, and morphine. Patient has some residual persistent nausea without active vomiting with treatment in the ED. Phenergan also provided for additional nausea relief. 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 Breana ent is nontoxic-appearing with normal chest x-ray therefore Boerhaave's thought to be less likely. Labs unremarkable. Urine sample was grossly bloody at the bedside as a result of menstrual cycle and therefore is inaccurate regarding diagnosis of UTI. Patient denies urinary symptoms and therefore would not be treated Critical care attestation.: If time is entered above; I have spent that time in minutes in the direct care of this critically ill patient, excluding procedure time. ED Disposition Time of Disposition: 05:15
[2020-05-20] MEDS ORDERED: THIAMINE 100 MG in SODIUM CHLORIDE 0.9% 50 ML IV ONE (00:59)
[2020-05-20] MEDS ORDERED: FAMOTIDINE 20 MG/2 ML INJ IV ONE (00:59)
[2020-05-20] MEDS ORDERED: ONDANSETRON 4 MG/2 ML INJ IV ONE ×2 (00:59→03:37)
--- NOTE | 2020-05-20 01:05 | XRay Report ---
XR chest 1V ap INDICATION / CLINICAL INFORMATION: borheaves COMPARISON: None available. FINDINGS: SUPPORT DEVICES: None. HEART / MEDIASTINUM: No significant abnormality. No pneumomediastinum. LUNGS / PLEURA: Lungs are clear. Costophrenic sulci are sharp. No evidence for left pleural effusion . No pneumothorax. ADDITIONAL FINDINGS: No gas is seen within the base the neck or chest wall. IMPRESSION: 1. No acute findings. Signer Name: Sven Veronica MD Signed: 05/20/2020 1:00 AM Workstation Name: [id number]
[2020-05-20 02:35] LABS: Bacteria,Urine 1+ /HPF (Negative); Bilirubin,Urine NEG (Negative); Blood,Urine LG (Negative); Color,Urine Amber (Yellow); Urobilinogen,Urine < 2.0 mg/dL (<2.0)
[2020-05-20 02:46] LABS: Protein,Urine >500 mg/dL (Negative); RBC,Urine > 182.0 /HPF (0.0-6.0)
[2020-05-20] MEDS ORDERED: LIDOCAINE VISCOUS 2% 15 ML ORAL LIQD PO ONE (03:37)
[2020-05-20] MEDS ORDERED: MORPHINE 4 MG/1 ML INJ IV ONE (03:37)
[2020-05-20] MEDS ORDERED: ALUM-MAG HYDROXIDE-SIMETHICONE 200-200-20MG/5ML ORAL LIQD 30 ML PO ONE (03:37)
[2020-05-20] MEDS ORDERED: PROMETHAZINE 25 MG TAB PO ONE (05:08)
== END 2020-05-20 05:40 | disposition home or self-care (01) ==
LOC: ED 21:24
DX: K29.20 Alcoholic gastritis without bleeding (principal); K22.6 Gastro-esophageal laceration-hemorrhage syndrome; J45.909 Unspecified asthma, uncomplicated; F17.200 Nicotine dependence, unspecified, uncomplicated; Z79.899 Other long term (current) drug therapy
CPT/HCPCS: 36415; 71045; 80053; 81001; 84703; 85025; 87086; 96365; 96375; 96376; 99284; J2270; J2405; J3411; J7030; Q0169

== ENCOUNTER 2021-10-08 09:14 | Emergency (ER) | payer BC ==
--- NOTE | 2021-10-08 11:09 | XRay Report ---
CHEST 1 VIEW 10/08/2021 10:53 AM INDICATION / CLINICAL INFORMATION: SOB. COMPARISON: 05/20/2020 FINDINGS: SUPPORT DEVICES: None. HEART / MEDIASTINUM: No significant abnormality. LUNGS / PLEURA: Linear opacities most consistent with segmental atelectasis have developed in both lo wer lung zones. The upper lung zones are clear. No pleural effusion or pneumothorax. ADDITIONAL FINDINGS: No significant additional findings. IMPRESSION: 1. No acute findings. Bibasilar atelectatic changes. Signer Name: Rickey Green Jr, MD Signed: 10/08/2021 11:05 AM Workstation Name: [id number]
--- NOTE | 2021-10-08 13:19 | Emergency Department Report ---
- General Chief Complaint: Dyspnea/Respdistress Stated Complaint: COVID POS/TERA/CHEST PAIN Source: patient Mode of arrival: Ambulatory Limitations: No Limitations - History of Present Illness Initial Comments: 31-year-old female presents to the ED complaining of cough, fever body ache chills x2 days. She states that she took a COVID test 2 days ago and was tested positive. Patient states that she has been taking oreq-nba-eyjzmoy sinus medication to help with symptom with mild relief. Patient states that she has been having a decreased appetite but has been able to eat. Patient denies any chest pain ,shortness of breath ,or fever at present time. Patient is alert and oriented x3. Denies any numbness tingling of the lower extremity. No acute distress noted. No ill appearance noted. MD Complaint: fever, cough, nasal congestion -: Sudden Severity: mild Severity scale (0 -10): 2 Quality: sharp Consistency: constant Improves With: nothing - Related Data Previous Rx's Medication Instructions Recorded Last Taken Type Acetaminophen/Codeine [Tylenol 1 tab PO Q6H PRN #12 tab 05/03/19 Unknown Rx /Codeine # 3 tab] Dicyclomine [Bentyl] 20 mg PO QID #30 tablet 05/06/19 Unknown Rx HYDROcodone/APAP 5-325 [Arabi 1 - 2 each PO Q6HR PRN #14 tablet 05/06/19 Unknown Rx 5/325] Promethazine [Phenergan] 25 mg PO Q6HR PRN #20 tab 05/06/19 Unknown Rx Mag Hydrox/Aluminum Hyd/Simeth 20 ml PO QID PRN #1 bottle 05/20/20 Unknown Rx [Maalox Advanced Suspension] Ondansetron [Zofran Odt] 4 mg PO Q8HR PRN #20 tab.rapdis 05/20/20 Unknown Rx Pantoprazole [Protonix] 40 mg PO QDAY #20 tablet 05/20/20 Unknown Rx Promethazine [Phenergan SUPPOS] 25 mg VA Q6HR PRN #20 supp.rect 05/20/20 Unknown Rx traMADoL [Ultram 50 MG tab] 50 mg PO Q6HR PRN #20 tablet 05/20/20 Unknown Rx Acetaminophen/Codeine [Tylenol 1 tab PO Q6H PRN 3 Days #12 tab 05/23/22 Unknown Rx /Codeine # 3 tab] Azithromycin 250 mg PO DAILY 5 Days #6 tab 10/08/21 Unknown Rx predniSONE [Deltasone] 50 mg PO QDAY 5 Days #5 tab 10/08/21 Unknown Rx Allergies Allergy/AdvReac Type Severity Reaction Status Date / Time No Known Allergies Allergy Verified 05/19/20 21:50 ED Review of Systems ROS: Stated complaint: COVID POS/TERA/CHEST PAIN Other details as noted in HPI Constitutional: chills, fever, weakness Eyes: denies: eye pain, eye discharge, vision change ENT: denies: ear pain, throat pain Respiratory: cough. denies: shortness of breath, wheezing Cardiovascular: denies: chest pain, palpitations Endocrine: no symptoms reported Gastrointestinal: denies: abdominal pain, nausea, diarrhea Genitourinary: denies: urgency, dysuria, discharge Musculoskeletal: denies: back pain, joint swelling, arthralgia Skin: denies: rash, lesions Neurological: denies: headache, weakness, paresthesias Psychiatric: denies: anxiety, depression Hematological/Lymphatic: denies: easy bleeding, easy bruising ED Past Medical Hx - Past Medical History Previous Medical History?: Yes Hx Asthma: Yes (allergies induced) - Surgical History Past Surgical History?: Yes - Social History Smoking Status: Current Every Day Smoker Substance Use Type: Alcohol - Medications Home Medications: Home Medications Medication Instructions Recorded Confirmed Last Taken Type Acetaminophen/Codeine [Tylenol 1 tab PO Q6H PRN #12 tab 05/03/19 Unknown Rx /Codeine # 3 tab] Dicyclomine [Bentyl] 20 mg PO QID #30 tablet 05/06/19 Unknown Rx HYDROcodone/APAP 5-325 [Arabi 1 - 2 each PO Q6HR PRN #14 tablet 05/06/19 Unknown Rx 5/325] Promethazine [Phenergan] 25 mg PO Q6HR PRN #20 tab 05/06/19 Unknown Rx Mag Hydrox/Aluminum Hyd/Simeth 20 ml PO QID PRN #1 bottle 05/20/20 Unknown Rx [Maalox Advanced Suspension] Ondansetron [Zofran Odt] 4 mg PO Q8HR PRN #20 tab.rapdis 05/20/20 Unknown Rx Pantoprazole [Protonix] 40 mg PO QDAY #20 tablet 05/20/20 Unknown Rx Promethazine [Phenergan SUPPOS] 25 mg VA Q6HR PRN #20 supp.rect 05/20/20 Unknow n Rx traMADoL [Ultram 50 MG tab] 50 mg PO Q6HR PRN #20 tablet 05/20/20 Unknown Rx Acetaminophen/Codeine [Tylenol 1 tab PO Q6H PRN 3 Days #12 tab 10/08/21 Unknown Rx /Codeine # 3 tab] Azithromycin 250 mg PO DAILY 5 Days #6 tab 10/08/21 Unknown Rx predniSONE [Deltasone] 50 mg PO QDAY 5 Days #5 tab 10/08/21 Unknown Rx ED Physical Exam - General Limitations: No Limitations General appearance: alert, in no apparent distress - Head Head exam: Present: atraumatic, normocephalic - Eye Eye exam: Present: normal appearance - ENT ENT exam: Present: mucous membranes moist - Neck Neck exam: Present: normal inspection - Respiratory Respiratory exam: Present: normal lung sounds bilaterally. Absent: respiratory distress - Cardiovascular Cardiovascular Exam: Present: regular rate, normal rhythm. Absent: systolic murmur, diastolic murmur, rubs, gallop - GI/Abdominal GI/Abdominal exam: Present: soft, normal bowel sounds - Extremities Exam Extremities exam: Present: normal inspection - Back Exam Back exam: Present: normal inspection - Neurological Exam Neurological exam: Present: alert, oriented X3 - Psychiatric Psychiatric exam: Present: normal affect, normal mood - Skin Skin exam: Present: warm, dry, intact, normal color. Absent: rash ED Course Vital Signs 10/08/21 10/08/21 10:33 12:38 Temperature 98.8 F Pulse Rate 115 H Respiratory 16 18 Rate Blood Pressure 108/78 [Left] O2 Sat by Pulse 98 97 Oximetry ED Medical Decision Making - EKG Data Rate: tachycardia - EKG Data When compared to previous EKG there are: no significant change Interpretation: nonspecific ST-T wave john - Radiology Data [facility] [address] [place] [address] XRay Report Signed Patient: LINDY JOHNSON MR#: [id number] : 1990 Acct:[id number] Age/Sex: 31 / F ADM Date: 10/08/21 Loc: ED Attending Dr: Ordering Physician: ED DOCMD Date of Service: 10/08/21 Procedure(s): XR chest routine 2V Accession Number(s): [id number] cc: ED DOC, Fluoro Time In Minutes: CHEST 1 VIEW 10/08/2021 10:53 AM INDICATION / CLINICAL INFORMATION: SOB. COMPARISON: 05/20/2020 FINDINGS: SUPPORT DEVICES: None. HEART / MEDIASTINUM: No significant abnormality. LUNGS / PLEURA: Linear opacities most consistent with segmental atelectasis have developed in both lower lung zones. The upper lung zones are clear. No pleural effusion or pneumothorax. ADDITIONAL FINDINGS: No significant additional findings. IMPRESSION: 1. No acute findings. Bibasilar atelectatic changes. Signer Name: Rickey Luo Jr, MD Signed: 10/08/2021 11:05 AM Workstation Name: [id number] Transcribed By: TTR Dictated By: RICKEY LUO JR, MD Electronically Authenticated By: RICKEY LUO JR, MD Signed Date/Time: 10/08/21 110 DD/ 1104 TD/TT: Print Cancel - Medical Decision Making 31-year-old female presents to the ED complaining of cough, fever body ache chills x2 days. She states that she took a COVID test 2 days ago and was tested positive. Patient states that she has been taking vixy-imp-ahcgmlc sinus medication to help with symptom with mild relief. Patient states that she has been having a decreased appetite but has been able to eat. Patient denies any chest pain ,shortness of breath ,or fever at present time. Patient is alert and oriented x3. Denies any numbness tingling of the lower extremity. No acute distress noted. No ill appearance noted. Physical examination is unremarkable. Patient had a walking O2sat for 2-minute 97%. Chest x-ray showed no infiltrates but atelectasis changes. EKG tachycardia at [address] segment changes. Patient low risk for DVT. Rechecked the patient is resting quietly quietly and comfortable and feeling better. I discussed the results of diagnostic study, my clinical impression and the plan for further treatment with the patient. Patient agrees with plan and discharge at this present time. All question addressed. I have given the patient instruction regarding a diagnosis ,expectation ,follow- up and return precaution. I explained to the patient that emergent condition may arise and to return to the ED for new worsen and any new persisting condition. I have explained the importance of following up with the primary care physician or referral physician listed below has instructed. The patient verbalized understanding of discharge instruction. Critical care attestation.: If time is entered above; I have spent that time in minutes in the direct care of this critically ill patient, excluding procedure time. ED Disposition Clinical Impression: COVID Disposition: 01 HOME / SELF CARE / HOMELESS Is pt being admited?: No Does the pt Need Aspirin: No Condition: Stable Instructions: Prevent the Spread of COVID-19 if You Are Sick - [facility] Additional Instructions: Return to ED for any worsening symptoms Drink plenty of fluids Take medication as prescribed Prescriptions: Azithromycin 250 mg PO DAILY 5 Days #6 tab predniSONE [Deltasone] 50 mg PO QDAY 5 Days #5 tab Acetaminophen/Codeine [Tylenol /Codeine # 3 tab] 1 tab PO Q6H PRN 3 Days #12 tab PRN Reason: Pain, Moderate (4-6) Referrals: [facility] [Provider Group] - 3-5 Days Forms: Work/School Release Form(ED) Time of Disposition: 13:20
[2021-10-08 14:35] VITALS: BP 128/86
--- NOTE | 2021-10-10 12:03 | Electrocardiograph Report ---
[facility] Test Date: 2021-10-08 Test Time: 10:38:58 Pat Name: LINDY JOHNSON Department: Room: Gender: F Stave Jointer: WALESKA : 1990 Requested By: ED DOC Order Number: [id number] Reading MD: Brian Hair Measurements Intervals Mason Rate: 105 P: 64 SD: 133 QRS: 36 QRSD: 87 T: 39 QT: 321 QTc: 424 Interpretive Statements Sinus tachycardia No previous ECG available for comparison Electronically Signed On 10-10-2021 12:03:10 EDT by Brian Hair
== END 2021-10-08 14:34 | disposition home or self-care (01) ==
LOC: ED 09:14
DX: Z20.822 Contact with and (suspected) exposure to COVID-19 (principal); J45.909 Unspecified asthma, uncomplicated; Z79.899 Other long term (current) drug therapy
CPT/HCPCS: 71046; 93005; 99283